=== PATIENT | female | born 2000 | race Caucasian/White ===

== ENCOUNTER 2019-07-05 22:01 | Emergency (ER) | payer OTHER ==
[~2019-07-05] VITALS: Ht 162.6 cm; Wt 72.7 kg
[2019-07-05 22:55] LABS: INFLUENZA A AMPLIFICATION NEGATIVE (NEGATIVE); INFLUENZA B AMPLIFICATION NEGATIVE (NEGATIVE)
[2019-07-05] MEDS ORDERED: ONDANSETRON 4 MG ORAL DISINTEGRATING TAB (Q0162 PER 1MG) PO ONE (23:00)
[2019-07-06 01:18] VITALS: BP 114/55
[2019-07-06] MEDS ORDERED: ONDA4TAB6 PO (01:18)
[2019-07-06] MEDS ORDERED: ONDANSETRON 4 MG ORAL DISINTEGRATING TAB (Q0162 PER 1MG) PO ONE (01:30)
== END 2019-07-06 01:30 | disposition home or self-care (01) ==
LOC: M ED 22:01
DX: A08.4 Viral intestinal infection, unspecified (principal)
CPT/HCPCS: 87502; 99283; Q0162

== ENCOUNTER 2019-10-09 14:00 | Inpatient (IN) | payer OTHER ==
[~2019-10-09] VITALS: Ht 162.6 cm; Wt 77.3 kg
[~2019-10-09 14:00] MED LIST: ONDA4TAB6 PO
[2019-10-09] MEDS ORDERED: MULTCAP PO (14:16)
[2019-10-09 14:40] LABS: HEMATOCRIT 39.9 % (36.0-47.0); HEMOGLOBIN 13.4 g/dl (12.0-15.5); MEAN CORPUSCULAR HEMOGLOBIN 31.4 pg (27.0-33.0); MEAN CORPUSCULAR HGB CONC 33.6 g/dl (32.0-36.5); MEAN CORPUSCULAR VOLUME 93.4 fl (80.0-96.0); PLATELET COUNT, AUTOMATED 241 10^3/uL (150-450); RED BLOOD COUNT 4.27 10^6/uL (4.00-5.40); WHITE BLOOD COUNT 7.1 10^3/uL (4.0-10.0)
[2019-10-09 15:12] LABS: AMPHETAMINES LEVEL URINE NEGATIVE (NEGATIVE); BARBITURATES URINE NEGATIVE (NEGATIVE); BENZODIAZEPINES URINE NEGATIVE (NEGATIVE); CANNABINOIDS URINE NEGATIVE (NEGATIVE); COCAINE METABOLITE URINE NEGATIVE (NEGATIVE); METHADONE URINE NEGATIVE (NEGATIVE); OPIATES URINE NEGATIVE (NEGATIVE); PHENCYCLIDINE URINE NEGATIVE (NEGATIVE)
[2019-10-09 15:22] LABS: ACETAMINOPHEN LEVEL < 2.0 UG/ML (10.0-30.0); ALT/SGPT 28 U/L (12-78); BILIRUBIN,DIRECT 0.1 MG/DL (0.0-0.2); BILIRUBIN,TOTAL 0.4 MG/DL (0.2-1.0); BLOOD UREA NITROGEN 10 MG/DL (7-18); CALCIUM LEVEL 8.8 MG/DL (8.5-10.1); CARBON DIOXIDE LEVEL 26 MEQ/L (21-32); CHLORIDE LEVEL 109 MEQ/L (98-107); CREATININE FOR GFR 0.67 MG/DL (0.55-1.30); ETHYL ALCOHOL (ETHANOL) < 0.003 % (0.000-0.010); GLUCOSE, FASTING 77 MG/DL (70-100); POTASSIUM SERUM 3.9 MEQ/L (3.5-5.1); SALICYLATE LEVEL < 1.7 MG/DL (5.0-30.0); SODIUM LEVEL 139 MEQ/L (136-145); TOTAL PROTEIN 7.6 GM/DL (6.4-8.2)
[2019-10-09 15:23] LABS: HCG, SERUM QUALITATIVE NEGATIVE (NEGATIVE)
[2019-10-09] MEDS ORDERED: IBUPROFEN 600MG TAB PO ONE (21:15)
[2019-10-09] MEDS ORDERED: MOM 30ML SUSPENSION UDC PO PRN (21:15)
[2019-10-09] MEDS ORDERED: MAALOX 30 ML SUSP *UDC PO PRN (21:15)
[2019-10-09] MEDS ORDERED: traZODone 50 MG TAB PO PRN (21:15)
[2019-10-09 22:30] VITALS: BP 136/99
[2019-10-10 06:21] VITALS: BP 125/61
--- NOTE | 2019-10-10 15:04 | HPEPDOC ---
[facility] Medical History & Physical Date of Admission Oct 09, 2019 Date of Service: Oct 10, 2019 History and Physical CHIEF COMPLAINT: Suicidal ideation HISTORY OF PRESENT ILLNESS: 19 yo female admitted to [facility] for suicidal ideation. No medical complaints. Denies shortness of breath, chest pain, headaches, N/V/D, abdominal pain, dysuria, polyuria. PAST MEDICAL HISTORY: Denies PAST SURGICAL HISTORY: Denies REVIEW OF SYSTEMS: 10 point review systems negative except as per HPI. HOME MEDICATIONS: Please see below. PHYSICAL EXAMINATION: VITAL SIGNS: See below General: NAD, sitting comfortably in chair HEENT: NC/AT, EOMI, PERRL Lungs: CTA B/L Heart: +S1S2, RRR Abd: soft, NT, +BS Ext: no edema LABORATORY DATA: See below. MICROBIOLOGY: Please see below. ASSESSMENT: 19 yo female admitted to [facility] for suicidal ideation. #SI - as per primary team - psychiatry Thank you for this consultation. Please re-consult as needed. Vital Signs Vital Signs Date Time Temp Pulse Resp B/P (MAP) Pulse Ox O2 Delivery O2 Flow Rate FiO2 10/10/19 06:21 98.9 94 18 125/61 (82) 10/09/19 22:30 100 Room Air Laboratory Data Labs 24H Laboratory Tests 2 10/09/19 14:23: Urine Opiates Screen NEGATIVE, Urine Methadone Screen NEGATIVE, Urine Barbiturates Screen NEGATIVE, Urine Phencyclidine Screen NEGATIVE, Urine Amphet amines Screen NEGATIVE, Urine Benzodiazepines Screen NEGATIVE, Urine Cocaine Metabolite Screen NEGATIVE, Urine Cannabinoids Screen NEGATIVE 10/09/19 14:27: Nucleated Red Blood Cells % (auto) 0.0, Anion Gap 4L, Calcium Level 8.8, Total Bilirubin 0.4, Direct Bilirubin 0.1, Aspartate Amino Transf (AST/SGOT) 15, Alanine Aminotransferase (ALT/SGPT) 28, Alkaline Phosphatase 57, Total Protein 7.6, Albumin 4.0, Albumin/Globulin Ratio 1.1L, Thyroid Stimulating Hormone (TSH) 1.280, Human Chorionic Gonadotropin, Qual NEGATIVE, Salicylates Level < 1.7L, Acetaminophen Level < 2.0L, Ethyl Alcohol Level < 0.003 CBC/BMP Laboratory Tests 10/09/19 14:27 Home Medications Scheduled Multivitamin (Multivitamins) 1 Each Capsule, 1 CAP PO DAILY Allergies Coded Allergies: No Known Allergies (Unverified , 07/05/19) A-FIB/CHADSVASC A-FIB History Current/History of A-Fib/PAF?: No CANDI GONZALEZ MD Oct 10, 2019 13:25
[2019-10-10 16:16] VITALS: BP 107/67
[2019-10-10] MEDS: ACETAMINOPHEN TAB 650MG DOSE (2X325MG) PO PRN (16:18)
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
[2019-10-10] MEDS: SERTRALINE HCL 50 MG TAB PO SCH (20:16)
[2019-10-11 06:21] VITALS: BP 126/65
--- NOTE | 2019-10-11 12:56 | MHIPNPDOC ---
[facility] Progress Note Progress Note DATE OF SERVICE: 10/11/19 HISTORY: Chief Complaint As per ED report: ".Pt called the crisis line today and told Betty "if she dosen't get help today she might not reach out the next time". odd bundle worker states that pt had fleeting SI thoughts. Pt self presents to [facility] via crisis workers suggestion. Chief Complaint Pt reports that she and have been together for 2 years a nd been for 1 year. Pt reports that that she is originally from [place] and that she and have been stationed at . Pt reports that at the age 13 she lost her mother in a tragic automobile accident. Pt reports that she had very brief counseling however, reports not really ever dealing with the tragedy. Patient reports that this unexpected tragedy tore her entire family apart. Pt feels that is when her depression and anxiety started. Pt is very tearful at times and states "I have no motivation, it's like I am giving up on myself even though I absolutely love my life". Pt reports that she has some inner stuff to deal with however, does not disclose what that inner stuff is. Pt reports that recently her brother came to stay with her and feels that he might be contributing to her severe depression due to pt stating her brother is an alcoholic and self- medicates daily. Pt reports that often she feels that maybe life would not be better if she wasn't alive however, reports that she doesn't believe she means that she will kill herself however, she means it more in a sense as if she were never born. Pt denies HI/Self Inj/AH/HI reports that in the last 2 months she has gained [id number] pounds in the last 2 months pt feels as though this is related to her increased depression. Pt reports good sleep however, pt does report that she suffers from night terrors that terrify her so badly that she wakes up drenched in sweat. Pt reports that she feels as though she needs help" VITAL SIGNS: See below. NEW TEST RESULTS: See below CURRENT MEDICATIONS: See below. MENTAL STATUS EXAMINATION: Patient is a 19-year old female, who is dressed in hospital clothes, with good hygiene and attire Speech: Is normal in r/t/v, spontaneous and fluent Language skills are good Thought processes including: linear and coherent Thought content: Denies SI?HI, denies thought delusions, reports some anxious thoughts but she has had them all her life. Abstract reasoning, and computation: good. Description of associations: Intact. Description of abnormal or psychotic thoughts: Denies thought delusions, denies TAV hallucinations. Judgment: improving. Insight: improving. Orientation: x 3. Recent and remote memory: intact. Attention span and concentration: good. Language: adequate. Fund of knowledge: average. Mood: "I feel better". Affect: congruent with mood. Diagnoses 1. Major Depressive disorder, recurrent 2. VICKY. Assessment: She feels better, she took her first dose of Zoloft last night , she has felt thirsty but denies any other side effects of the medication, she is improving Plan: -Continue current treatment plan Time Spent: 20 minutes Vital Signs Vital Signs Date Time Temp Pulse Resp B/P (MAP) Pulse Ox O2 Delivery O2 Flow Rate FiO2 10/11/19 06:21 99.2 98 16 126/65 (85) 10/09/19 22:30 100 Room Air Current Medications Current Medications Medications (Trade) Dose Ordered Sig/Roberto Carlos Route PRN Reason Start Time Stop Time Status Last Admin Dose Admin Acetaminophen (Tylenol Tab) 650 mg Q6HP PRN PO HEADACHE or DISCOMFORT 10/09/19 21:15 10/10/19 16:18 Al Hydrox/Mg Hydrox/Simethicone (Mylanta) 30 ml Q4HP PRN PO HEARTBURN/INDIGESTION 10/09/19 21:15 Home Med (Med Rec Complete!) ASDIRECTED XX 10/09/19 19:45 10/09/19 19:47 DC Magnesium Hydroxide (Milk Of Magnesia) 30 ml DAILYPRN PRN PO CONSTIPATION 10/09/19 21:15 Sertraline HCl (Zoloft) 50 mg QHS PO 10/10/19 21:00 10/10/19 20:16 Trazodone HCl (Desyrel) 50 mg QHSP PRN PO INSOMNIA 10/09/19 21:15 Allergies Coded Allergies: No Known Allergies (Unverified , 07/05/19) CLEMENTINE JIMENES MD Oct 11, 2019 12:35
[2019-10-11 16:20] VITALS: BP 113/61
[2019-10-11] MEDS: SERTRALINE HCL 50 MG TAB PO SCH (20:12)
[2019-10-12 06:42] VITALS: BP 103/58
--- NOTE | 2019-10-12 10:19 | MHIPNPDOC ---
[facility] Progress Note Progress Note The patient was seen on 10/12/19. Chapito Dunaway presents today about her current medications and recent prescriptions. Patient experienced dry mouth on the first night after starting Zoloft. Patient denies side effects from Zoloft such as stomach discomfort, tremors, fevers, cough, and heart problems. Patient notes that after taking Zoloft for a few days, she is feeling more energetic. Patient feels slightly anxious today. However, she generally appears happy, not depressed, and has clear, linear thoughts. Patient denies suicidal thoughts, homicidal thoughts, and hallucinations. Patient recently started Zoloft and has been responding generally well so far. Patient has a history of depression and anxiety. ROS Psychiatric: +Anxiety, -Depression, -Hallucinations, -Homicidal ideation, - Suicidal ideation Gastrointestinal: Normal Cardiovascular: Normal Constitutional: Normal Objective Mood: Appropriately reactive. Happy. Euthymic. Speech: Clear speech. Motor: No psychomotor problems. Cognition: Intact cognition. Thought Form: Forward-thinking. Linear with clear speech and thought. Assessment F33.42 Major depressive disorder, recurrent, in full remission Plan Arrange for patient to go home tomorrow since her depression is in full remission. Vital Signs Vital Signs Date Time Temp Pulse Resp B/P (MAP) Pulse Ox O2 Delivery O2 Flow Rate FiO2 10/12/19 06:42 98.1 66 14 103/58 (73) 99 Room Air Current Medications Current Medications Medications (Trade) Dose Ordered Sig/Roberto Carlos Route PRN Reason Start Time Stop Time Status Last Admin Dose Admin Acetaminophen (Tylenol Tab) 650 mg Q6HP PRN PO HEADACHE or DISCOMFORT 10/09/19 21:15 10/10/19 16:18 Al Hydrox/Mg Hydrox/Simethicone (Mylanta) 30 ml Q4HP PRN PO HEARTBURN/INDIGESTION 10/09/19 21:15 Home Med (Med Rec Complete!) ASDIRECTED XX 10/09/19 19:45 10/09/19 19:47 DC Magnesium Hydroxide (Milk Of Magnesia) 30 ml DAILYPRN PRN PO CONSTIPATION 10/09/19 21:15 Sertraline HCl (Zoloft) 50 mg QHS PO 10/10/19 21:00 10/11/19 20:12 Trazodone HCl (Desyrel) 50 mg QHSP PRN PO INSOMNIA 10/09/19 21:15 Allergies Coded Allergies: No Known Allergies (Unverified , 07/05/19) TOM PACKER DO Oct 12, 2019 10:19
[2019-10-12 15:36] VITALS: BP 128/70
[2019-10-12] MEDS: ACETAMINOPHEN TAB 650MG DOSE (2X325MG) PO PRN (15:50)
[2019-10-12] MEDS: SERTRALINE HCL 50 MG TAB PO SCH (20:06)
[2019-10-12] MEDS ORDERED: IBUPROFEN 600MG TAB PO PRN (21:00)
[2019-10-13 06:00] VITALS: BP 116/66
--- NOTE | 2019-10-13 09:23 | MHDSPDOC ---
[facility] Discharge Summary Discharge Summary DATE OF ADMISSION: Oct 09, 2019 at 21:08 DATE OF DISCHARGE: Oct 13, 2019 at 12:40 DISCHARGE DIAGNOSES: See Problem list below REASON FOR ADMISSION: 19-year-old woman admitted for SI in the context of multiple stressors CONSULTANTS INVOLVED:[ None (basic hospitalist screening)] TREATMENT AND PROGRESS ON THE UNIT : Medication changes: started on sertraline titrated up to 50 mg daily, with positive results Behavior on unit: friendly and amenable Treatment attendance: attended well Notable issues on presentation: notable problems, results without major incident State on discharge: [improved] DISCHARGE ASSESSMENT: The patient a 19 year old woman, with likely depression, presented to [facility], where they treated with appropriate agent and resolve quickly without incident. Legal status considerations: The patient at the time of discharge did not meet criteria for involuntary admission/extension due to having a [normal] mental status exam, [fair] insight into the situation, They are engaged in the discharge process, as well as being friendly and amenable in behavioral control and havent been engaging in any observed concerning behavior or ideation recently. They decline voluntary extension/admission at this time and must be discharged in good alyce, as Im unable to make a case for holding the patient against their will. They may have historical risk factors of admissions and other interactions with psychiatry however, those are not modifiable from a clinical perspective. The patient will need to be discharged in good alyce. MENTAL STATUS EXAMINATION ON DISCHARGE: [General: Well dressed with good hygiene Speech: Spontaneous and fluid Thought processes: Linear and logical Thought content: Future orientated Abstract reasoning, and computation: Intact Description of associations: Intact Description of abnormal or psychotic thoughts:Denies any suicidal or homicidal ideation. Denies any auditory or visual hallucinations. Does not appear to be responding to internal stimuli. Does not appear to be endorsing any bizarre or paranoid ideation. Judgment: fair Insight: fair Orientation: Alert and orientated 3 Recent and remote memory: Intact Attention span and concentration: Intact Fund of knowledge: Adequate Mood: "okay" Affect: Euthymic with a full range] PLAN/FOLLOWUP ARRANGEMENTS: Follow up appointments made (PCP and MH in 5 days of D/C date) and safety plan completed. Safety Planning aspects completed prior to discharge [Medication supplies limited to 7 days with 4 refills to prevent accumulation to OD] [RN reviewed crisis hotline information and other aspects to empower patient to access care in interim before next appointment.] The amount of time spent in the coordination of care for this patient was approximately 30 minutes. Vital Signs/I&Os Vital Signs Date Time Temp Pulse Resp B/P (MAP) Pulse Ox O2 Delivery O2 Flow Rate FiO2 10/13/19 06:00 99.3 81 12 116/66 (83) 98 10/12/19 06:42 Room Air Medications Scheduled Multivitamin (Multivitamins) 1 Each Capsule, 1 CAP PO DAILY, (Reported) Sertraline HCl (Sertraline HCl) 50 Mg Tablet, 50 MG PO QHS for mood for 7 Days, #7 Allergies Coded Allergies: No Known Allergies (Unverified , 07/05/19) Problems (1) Depressive disorder, not elsewhere classified Status: Resolved Plan / VTE VTE Prophylaxis Ordered?: No TOM PACKER DO Oct 13, 2019 09:22
[2019-10-13] MEDS ORDERED: SERT50TA29 PO (10:39)
== END 2019-10-13 12:40 | disposition home or self-care (01) | DRG 881 ==
LOC: M ED 14:00 → M ED INP 21:08 → M PSY 22:15
PROVIDERS: ADMIT Psychiatry & Neurology Addiction Medicine; ATTEND Psychiatry & Neurology Addiction Medicine
DX: F32.9 Major depressive disorder, single episode, unspecified (principal)

== ENCOUNTER 2020-03-02 02:18 | Emergency (ER) | payer OTHER ==
[~2020-03-02] VITALS: Ht 162.6 cm; Wt 79.1 kg
[~2020-03-02 02:18] MED LIST changes: +MULTCAP PO; +SERT50TA29 PO
[2020-03-02] MEDS ORDERED: IBUP80TA PO (03:50)
[2020-03-02] MEDS ORDERED: AUGMENTIN 875 MG TAB PO ONE (04:00)
[2020-03-02 04:04] VITALS: BP 136/84
== END 2020-03-02 04:05 | disposition home or self-care (01) ==
LOC: M ED 02:18
DX: K04.7 Periapical abscess without sinus (principal); F17.200 Nicotine dependence, unspecified, uncomplicated

== ENCOUNTER 2020-07-04 07:46 | Emergency (ER) | payer OTHER ==
[~2020-07-04] VITALS: Ht 162.6 cm; Wt 77.3 kg
[~2020-07-04 07:46] MED LIST changes: +IBUP80TA PO
[2020-07-04 07:53] VITALS: BP 132/84
== END 2020-07-04 10:04 | disposition home or self-care (01) ==
LOC: M ED 07:46
DX: F41.9 Anxiety disorder, unspecified (principal)

== ENCOUNTER 2020-11-19 18:44 | Emergency (ER) | payer OTHER ==
[~2020-11-19] VITALS: Ht 162.6 cm; Wt 85.8 kg
[2020-11-19 18:44] VITALS: BP 131/79
== END 2020-11-19 19:40 | disposition left against medical advice (07) ==
LOC: M ED 18:44
DX: Z53.21 Procedure and treatment not carried out due to patient leaving prior to being seen by health care provider (principal)